=== PATIENT | female | born 1975 ===

== ENCOUNTER 2016-12-01 07:54 | Emergency (ER) | payer OTHER ==
[2016-12-01 07:54] VITALS: BMI 28.4
[2016-12-01 08:06] VITALS: BP 132/99; PULSE 75; RESP 18; TEMP 98.3; O2SAT 99
--- NOTE | 2016-12-01 08:28 | ED PDOC ---
HPI: General Adult Time Seen by Provider: 12/01/16 08:15 Chief Complaint (Nursing): Flu-like Symptoms Chief Complaint (Provider): Cough History Per: Patient History/Exam Limitations: no limitations Onset/Duration Of Symptoms: Days (x2) Current Symptoms Are (Timing): Still Present Severity: Mild Additional Complaint(s): Patient is a 41 year old female, who has a history of Bronchitis, presents to the ED complaining of cough x2 days. Cough is associated with sputum and fever. Denies shortness of breath. PMD: none Past Medical History Reviewed: Historical Data, Nursing Documentation, Vital Signs Vital Signs: Last Vital Signs Temp 98.3 F 12/01/16 08:05 Pulse 75 12/01/16 08:05 Resp 18 12/01/16 08:05 BP 132/99 H 12/01/16 08:05 Pulse Ox 99 12/01/16 08:28 - Medical History PMH: Bronchitis - Surgical History Surgical History: Cholecystectomy - Family History Family History: States: No Known Family Hx Denies: Stroke, [place], CAD, Diabetes, Hypertension - Home Medications Home Medications: Ambulatory Orders Medication Instructions Recorded Multivit/Folic Acid/I 1 tab PO DAILY 03/13/16 [] Docusate [Colace] 100 mg PO Q12H PRN #60 cap 03/17/16 Ferrous Sulfate [Feosol] 325 mg PO DAILY #30 tab 03/17/16 Azithromycin [Zithromax] 250 mg PO DAILY #6 tab 12/01/16 - Allergies Allergies/Adverse Reactions: Allergies Allergy/AdvReac Type Severity Reaction Status Date / Time No Known Allergies Allergy Verified 12/01/16 08:16 Review of Systems ROS Statement: Except As Marked, All Systems Reviewed And Found Negative Constitutional: Positive for: Fever Respiratory: Positive for: Cough, Sputum. Negative for: Shortness of Breath Physical Exam - Reviewed Nursing Documentation Reviewed: Yes Vital Signs Reviewed: Yes - Physical Exam Appears: Positive for: Well, Non-toxic, No Acute Distress Head Exam: Positive for: ATRAUMATIC, NORMAL INSPECTION, NORMOCEPHALIC Skin: Positive for: Normal Color, Warm, DRY Eye Exam: Positive for: Normal appearance, EOMI Cardiovascular/Chest: Positive for: Regular Rate, Rhythm. Negative for: Gallop , Murmur Respiratory: Positive for: Rhonchi (scattered). Negative for: Accessory Muscle Use, Wheezing, Respiratory Distress Gastrointestinal/Abdominal: Positive for: Normal Exam, Soft. Negative for: Tenderness, Mass, Distended, Guarding, Rebound Extremity: Positive for: Normal ROM Neurologic/Psych: Positive for: Alert, Oriented - ECG O2 Sat by Pulse Oximetry: 99 (RA) Pulse Ox Interpretation: Normal Medical Decision Making Medical Decision Making: Time: 8:15 Impression: 41 y/o female w/ productive cough and fever Plan: CXR Influenza A B Stat UPreg Scribe Attestation: Documented by Rene Viveros acting as a scribe for Fahad Toure MD. Scribe Attestation: All medical record entries made by the Scribe were at my direction and personally dictated by me. I have reviewed the chart and agree that the record accurately reflects my personal performance of the history, physical exam, medical decision making, and the department course for this patient. I have also personally directed, reviewed, and agree with the discharge instructions and disposition. Disposition - Clinical Impression Clinical Impression: Bronchitis - Patient ED Disposition Is Patient to be Admitted: No Counseled Patient/Family Regarding: Studies Performed, Diagnosis, Need For Followup, Rx Given - Disposition Referrals: [facility] [Outside] Disposition: Routine/Home Disposition Time: 09:57 Condition: FAIR Prescriptions: Azithromycin [Zithromax] 250 mg PO DAILY #6 tab Instructions: Acute Bronchitis (ED)
--- NOTE | 2016-12-01 13:24 | RAD ---
HISTORY: Cough, fever. COMPARISON: 09/25/2014. TECHNIQUE: Chest PA and lateral FINDINGS: LUNGS: No active pulmonary disease. PLEURA: No significant pleural effusion identified. No pneumothorax apparent. CARDIOVASCULAR: Normal. OSSEOUS STRUCTURES: No significant abnormalities. VISUALIZED UPPER ABDOMEN: Normal. OTHER FINDINGS: None. IMPRESSION: No active disease. No significant interval change compared to the prior examination(s).
== END 2016-12-01 10:35 | disposition home or self-care (01) ==
LOC: H.ER 07:54
DX: J40 Bronchitis, not specified as acute or chronic (principal); R05 Cough; R50.9 Fever, unspecified

== ENCOUNTER 2017-04-15 07:35 | Emergency (ER) | payer OTHER ==
[2017-04-15 07:36] VITALS: BMI 28.4
[2017-04-15 08:09] VITALS: BP 116/72; PULSE 83; RESP 18; TEMP 98; O2SAT 100
--- NOTE | 2017-04-15 08:14 | ED PDOC ---
HPI: Abdomen Time Seen by Provider: 04/15/17 08:02 Chief Complaint (Nursing): Abdominal Pain Chief Complaint (Provider): Abdominal Pain History Per: Patient History/Exam Limitations: no limitations Onset/Duration Of Symptoms: Days Current Symptoms Are (Timing): Still Present Additional Complaint(s): 41 y/o female, , presents to the emergency department with a complaint of an upper abdominal pain associated with clear vaginal liquid since yesterday, . Patient approximately 16 weeks . Denies vaginal bleeding, dysuria, or fever. Past Medical History Reviewed: Historical Data, Nursing Documentation, Vital Signs Vital Signs: Last Vital Signs Temp 98 F 04/15/17 08:05 Pulse 83 04/15/17 08:05 Resp 18 04/15/17 08:05 BP 116/72 04/15/17 08:05 Pulse Ox 100 04/15/17 11:42 - Medical History PMH: Bronchitis - Surgical History Surgical History: Cholecystectomy - Family History Family History: Denies: Stroke, [place], CAD, Diabetes, Hypertension - Social History Current smoker - smoking cessation education provided: No Alcohol: None Drugs: Denies - Home Medications Home Medications: Ambulatory Orders Medication Instructions Recorded Multivit/Folic Acid/I 1 tab PO DAILY 03/13/16 [] Docusate [Colace] 100 mg PO Q12H PRN #60 cap 03/17/16 Ferrous Sulfate [Feosol] 325 mg PO DAILY #30 tab 03/17/16 Azithromycin [Zithromax] 250 mg PO DAILY #6 tab 12/01/16 Miconazole Nitrate [Monistat 7] 44 gm VG DAILY #7 cmb.pf.crm 04/15/17 - Allergies Allergies/Adverse Reactions: Allergies Allergy/AdvReac Type Severity Reaction Status Date / Time No Known Allergies Allergy Verified 12/01/16 08:16 Review of Systems ROS Statement: Except As Marked, All Systems Reviewed And Found Negative Constitutional: Negative for: Fever Gastrointestinal: Positive for: Abdominal Pain (Upper region) Genitourinary Female: Positive for: Vaginal Discharge. Negative for: Dysuria, Vaginal Bleeding Physical Exam - Reviewed Nursing Documentation Reviewed: Yes Vital Signs Reviewed: Yes - Physical Exam Appears: Positive for: Non-toxic, No Acute Distress Head Exam: Positive for: ATRAUMATIC, NORMAL INSPECTION, NORMOCEPHALIC Skin: Positive for: Normal Color, Warm, Dry Neck: Positive for: Normal, Supple Cardiovascular/Chest: Positive for: Regular Rate, Rhythm. Negative for: Murmur Respiratory: Positive for: Normal Breath Sounds. Negative for: Accessory Muscle Use, Wheezing, Respiratory Distress Gastrointestinal/Abdominal: Positive for: Normal Exam, Soft, Other (Gravid). Negative for: Tenderness Back: Positive for: Normal Inspection Extremity: Positive for: Normal ROM. Negative for: Pedal Edema Neurologic/Psych: Positive for: Alert, Oriented (x3) - Laboratory Results Result Diagrams: 04/15/17 08:30 04/15/17 08:30 - ECG O2 Sat by Pulse Oximetry: 100 (RA) Pulse Ox Interpretation: Normal Medical Decision Making Medical Decision Making: Time: 08:13 Initial impression: Abdominal pain Initial plan: --Type and Screen --Beta-HCG, Quantitative --CMP --Urine DIP --CBC w/ diff --OB , Limited US --Reevaluation Time: 03:30 --Beta-HCQ, Quantitative: 38869.00 Time: 11:27 --Obstetrics Ultrasound FINDINGS: UTERUS: Gestational sac: Single live intrauterine fetus in breech presentation. Heart rate: 133 bpm. age (Ultrasound estimated): 18 weeks and 6 days BPD: 4.24 cm corresponding to 18 weeks and 6 days of gestational age. HC: 16.22 cm corresponding to 19 weeks and 0 days of gestational age. AC: 13.44 cm corresponding to 18 weeks and 6 days of gestational age. FL: 2.86 cm corresponding to 18 weeks and 5 days of gestational age. Placenta is posterior. Amniotic fluid is seen around the fetus. Joann-gestational hemorrhage: None. Date of delivery (Ultrasound estimated) : 09/10/2017 CERVIX: Long and closed. No cervical abnormality seen. RIGHT OVARY: Measures cm. No mass lesion. Normal flow. LEFT OVARY: Measures cm. No solid mass. Normal flow. FREE FLUID: None. OTHER FINDINGS: None. IMPRESSION: Single live intrauterine fetus in breech presentation with mean gestational age of 18 weeks and 6 days. Placenta is posterior. The estimated date of delivery by ultrasound is 09/10/2017. The ultrasound dates correspond with the clinical dates. Scribe Attestation: Documented by Zohra Dueñas, acting as a scribe for Fahad Toure MD. Evaluated by Dr. Long Can be discharged Provider Scribe Attestation: All medical record entries made by the Scribe were at my direction and personally dictated by me. I have reviewed the chart and agree that the record accurately reflects my personal performance of the history, physical exam, medical decision making, and the department course for this patient. I have also personally directed, reviewed, and agree with the discharge instructions and disposition. Disposition - Clinical Impression Clinical Impression: Vaginal candidiasis - Patient ED Disposition Is Patient to be Admitted: No Counseled Patient/Family Regarding: Studies Performed, Diagnosis, Need For Followup, Rx Given - Disposition [facility] Disposition: Routine/Home Disposition Time: 13:41 Condition: FAIR Prescriptions: Miconazole Nitrate [Monistat 7] 44 gm VG DAILY #7 [email or web address] Instructions: Vulvovaginal Candidiasis (ED) Forms: [facility] (Romanian)
[2017-04-15 08:45] LABS: BASO # 0.1 K/uL (0.0-0.2); BASO % 1.1 % (0.0-2.0); EOS # 0.4 K/uL (0.0-0.7); HEMATOCRIT 35.6 % (34.0-47.0); LYMPH # 1.7 K/uL (1.0-4.3); LYMPH % 18.8 % (20.0-40.0); MEAN CELL VOLUME 80.7 fl (81.0-99.0); MEAN CORPUSCULAR HEMOGLOBIN 25.8 pg (27.0-31.0); MEAN CORPUSCULAR HGB CONC 31.9 g/dL (33.0-37.0); MEAN PLATELET VOLUME 9.4 fl (7.2-11.7); MONO # 0.9 K/uL (0.0-0.8); MONO % 9.6 % (0.0-10.0); NEUT # 5.9 K/uL (1.8-7.0); NEUT % 66.5 % (50.0-75.0); RED CELL DISTRIBUTION WIDTH 15.6 % (11.5-14.5); WHITE BLOOD COUNT 8.9 K/uL (4.8-10.8)
[2017-04-15 08:59] LABS: ALB/GLOB RATIO 1.2 (1.0-2.1); ALKALINE PHOSPHATASE 74 U/L (38-126); ALT/SGPT 26 U/L (9-52); AST/SGOT 17 U/L (14-36); BILIRUBIN,TOTAL 0.3 mg/dl (0.2-1.3); BLOOD UREA NITROGEN 8 mg/dl (7-17); CALCIUM 8.7 mg/dL (8.4-10.2); CARBON DIOXIDE 22 mmol/L (22-30); CHLORIDE 108 mmol/L (98-107); GFR AFRICAN-AMERICAN > 60; GLUCOSE,RANDOM 85 mg/dL (65-105); SODIUM 138 mmol/l (132-148); TOTAL PROTEIN 6.8 G/DL (6.3-8.2)
--- NOTE | 2017-04-15 11:29 | US ---
PROCEDURE: OB Pelvic Ultrasound HISTORY: leaking clear fluid COMPARISON: None available. FINDINGS: UTERUS: Gestational sac: Single live intrauterine fetus in breech presentation. Heart rate: 133 bpm. age (Ultrasound estimated): 18 weeks and 6 days BPD: 4.24 cm corresponding to 18 weeks and 6 days of gestational age. HC: 16.22 cm corresponding to 19 weeks and 0 days of gestational age. AC: 13.44 cm corresponding to 18 weeks and 6 days of gestational age. FL: 2.86 cm corresponding to 18 weeks and 5 days of gestational age. Placenta is posterior. Amniotic fluid is seen around the fetus. Joann-gestational hemorrhage: None. Date of delivery (Ultrasound estimated) : 09/10/2017 CERVIX: Long and closed. No cervical abnormality seen. RIGHT OVARY: Measures cm. No mass lesion. Normal flow. LEFT OVARY: Measures cm. No solid mass. Normal flow. FREE FLUID: None. OTHER FINDINGS: None. IMPRESSION: Single live intrauterine fetus in breech presentation with mean gestational age of 18 weeks and 6 days. Placenta is posterior. The estimated date of delivery by ultrasound is 09/10/2017. The ultrasound dates correspond with the clinical dates.
--- NOTE | 2017-04-15 15:00 | CP.PCM.CON ---
History of Present Illness - History of Present Illness History of Present Illness: Patient is a 41 yo 4 para 3003 @ 18.5wks with an LMP 12/05/2016 EDC confirmed by us of 09/11who presented to the emergency department today with c/o leakage her vagina. She states she was unsure if she had ruptured membranes or if this was urine. She denies uterine cramps contractions or vaginal bleeding. OB ultrasound done today shows gestational age consistent with her LMP. she states she has called the [facility] an begin her care. She is not taking any vitamins. Past medical history history of cholelithiasis past surgical history. His history of laparoscopic cholecystectomy. Oh OB history: Spontaneous vaginal delivery 3. No known drug allergies Medications none Social history she denies tobacco use alcohol or illicit drug use. Review of Systems - EENT Eyes: absent: Blurred Vision - Cardiovascular Cardiovascular: absent: Chest Pain, Chest Pain at Rest, Chest Pain with Activity , Dyspnea - Gastrointestinal Gastrointestinal: Bloating. absent: Constipation, Diarrhea, Hematemesis, Vomiting - Genitourinary Genitourinary: absent: Difficulty Urinating - Neurological Neurological: absent: Abnormal Gait, Abnormal Movements - Psychiatric Psychiatric: absent: Anxiety - Hematologic/Lymphatic Hematologic: absent: Easy Bleeding Past Patient History - Past Social History Alcohol: None Drugs: Denies - PULMONARY Hx Bronchitis: Yes - PSYCHIATRIC Hx Substance Use: No - SURGICAL HISTORY Hx Cholecystectomy: Yes - ANESTHESIA Hx Anesthesia: Yes Hx Anesthesia Reactions: No Meds Home Medications: Home Medication List Medication Instructions Recorded Confirmed Type Miconazole Nitrate [Monistat 7] 44 gm VG DAILY #7 cmb.pf.crm 04/15/17 Rx Allergies/Adverse Reactions: Allergies Allergy/AdvReac Type Severity Reaction Status Date / Time No Known Allergies Allergy Verified 12/01/16 08:16 Physical Exam - Constitutional Appears: Well, No Acute Distress - Head Exam Head Exam: ATRAUMATIC, NORMOCEPHALIC - Respiratory Exam Respiratory Exam: NORMAL BREATHING PATTERN - Cardiovascular Exam Cardiovascular Exam: REGULAR RHYTHM - GI/Abdominal Exam GI & Abdominal Exam: Soft. absent: Distended, Guarding, Rebound, Tenderness - Exam External exam: NORMAL EXTERNAL EXAM Speculum exam: Vaginal Discharge (yellow curd-like vaginal discharge consistent with candidiasis). absent: Laceration, NORMAL SPECULUM EXAM (no fluid in vault with and without Valsalva and nitrazine negative), Vaginal Bleeding Bimanual exam: NORMAL BIMANUAL EXAM, Uterine Enlargement Results - Vital Signs Recent Vital Signs: Last Vital Signs Temp 98 F 04/15/17 08:05 Pulse 83 04/15/17 08:05 Resp 18 04/15/17 08:05 BP 116/72 04/15/17 08:05 Pulse Ox 100 04/15/17 13:43 - Labs Result Diagrams: 04/15/17 08:30 04/15/17 08:30 Labs: Laboratory Results - last 24 hr 04/15/17 04/15/17 04/15/17 08:30 08:30 08:30 WBC 8.9 RBC 4.42 Hgb 11.4 L Hct 35.6 MCV 80.7 L MCH 25.8 L MCHC 31.9 L RDW 15.6 H Plt Count 231 D MPV 9.4 Neut % (Auto) 66.5 Lymph % (Auto) 18.8 L Wells % (Auto) 9.6 Eos % (Auto) 4.0 Baso % (Auto) 1.1 Neut # 5.9 Lymph # 1.7 Wells # 0.9 H Eos # 0.4 Baso # 0.1 Sodium 138 Potassium 4.0 Chloride 108 H Carbon Dioxide 22 Anion Gap 12 BUN 8 Creatinine 0.4 L Est GFR ( Amer) > 60 Est GFR (Non-Af Amer) > 60 Random Glucose 85 Calcium 8.7 Total Bilirubin 0.3 AST 17 ALT 26 Alkaline Phosphatase 74 Total Protein 6.8 Albumin 3.7 Globulin 3.1 Albumin/Globulin Ratio 1.2 Beta HCG, Quant 05449.00 Blood Type O POSITIVE Antibody Screen Negative BBK History Checked Patient has bt Assessment & Plan - Assessment and Plan (Free Text) Assessment: impression: Advanced maternal age 18 week 5 day pregnancyVaginal candidiasis No evidence of PP PROM plan plan patient is scheduled in clinic for f/u of ED visit patient has been placed on the waiting list to schedule her first OB appointment. Importance of care and increase due to advanced maternal age discussed with patient. patientto take Monistat for 7 days with applicator this was discussed with patient begin vitamins
== END 2017-04-15 14:00 | disposition home or self-care (01) ==
LOC: H.ER 07:35
DX: O23.599 Infection of other part of genital tract in pregnancy, unspecified trimester (principal)

== ENCOUNTER 2017-06-13 00:34 | Emergency (ER) | payer SELFPAY ==
[2017-06-13 01:06] VITALS: BMI 28.8
[2017-06-13 01:35] LABS: RBC URINE 3 /hpf (0-3); URINE BILIRUBIN NEGATIVE (NEGATIVE); URINE BLOOD NEGATIVE (NEGATIVE); URINE COLOR STRAW (YELLOW); URINE GLUCOSE (UA) NEG (Normal); URINE KETONE NEGATIVE (NEGATIVE); URINE LEUKOCYTE ESTERASE NEG Leu/uL (Negative); URINE PROTEIN NEGATIVE (NEGATIVE); URINE UROBILINOGEN 0.2-1.0 mg/dL (0.2-1.0); WBC URINE 1 /hpf (0-5)
--- NOTE | 2017-06-13 02:06 | OBHP ---
Datetime: 06/13/2017 01:30 IP Adm Impression: , intrauterine ; No Active Labor; Intact Membranes IP Admit Plan: Discharge home Admit Comment, IP Provider: 41yo c/o vaginal blood noted after wiping at 8pm. Also again la ter at night. descreibed as brown/red on tissue and feeling wet. Lower abd discomfort for 3d midlin e non-radiating. +FM; no CTX PNC: CFH x 3 visit starting at 20w sono post plac; RH pos PMH: denies PSH: denies NKA PSoH deneis smoking ETOH drugs A: IUP at 27w abd pain/no evid of VB candidal vaginitis PLAN; check UA; FERN neg Pelvic Type - PN: Adequate Extremities - PN: Normal Abdomen - PN: Normal Back - PN: Normal Lungs - PN: Normal Heart - PN: Normal Neurologic - PN: Normal HEENT - PN: Normal General - PN: Normal FHR - Baseline A Provider: 120 Membranes, Provider: Intact Comments, ACOG Physical Exam: ROS: general no weakness; no fatigue HEENT: no GARCIA; no visual dist CV: no CP; no palpitations ResP; no cough/no SOB GI: no N/V/D : no F/U/D MS: no joint pain; no decreased ROM PE: vagina: thick brown discharge; curdy Pool Provider: Negative Ferning Provider: Negative IP Hx Assessment: The History has been Reviewed and is Current Vital Signs Provider: Reviewed; Within Normal Limits IP Chief Complaint: Suspected ruptured membranes; Vaginal bleeding NICHD Variability Prov Fetus A: Moderate 6-25bpm NICHD Accel Fetus A IP Provider: 10X10 FHR Category Provider Fetus A: Category I NICHD Decel Fetus A IP Provider: None Dilatation, Provider: 0 Genitourinary Exam: Normal
--- NOTE | 2017-06-13 02:08 | OBDCSUM ---
Datetime: 06/13/2017 01:55 Discharged to, Provider: Home Follow up at, Provider: YANNICK Disch Instr Activity: Normal activity Disch Instr Diet: Regular Discharge Instructions, Provider: Routine instructions given Discharge Time: 06/13/2017 01:58 Follow up in weeks, Provider: pt to call for next appointment Disch Referrals: None Disch Activity Restrictions: No sexual activity; Nothing in vagina - [place], tampons, douche Discharge Comment, Provider: UA neg Luh vaginits: Terazol 7 cream x 7d Next appt Jun 24 as scheduled Discharge Diagnosis Prov Other: luh vaginitis
[2017-06-13 06:22] VITALS: BP 94/60; PULSE 76; RESP 19; TEMP 98.3; O2SAT 99
== END 2017-06-13 02:00 | disposition home or self-care (01) ==
LOC: H.EROB2 00:34
DX: O26.92 Pregnancy related conditions, unspecified, second trimester (principal); R10.2 Pelvic and perineal pain; Z3A.27 27 weeks gestation of pregnancy

== ENCOUNTER 2018-06-27 20:22 | Emergency (ER) | payer MEDICAID, SELFPAY ==
[2018-06-27 20:23] VITALS: BMI 28.8
[2018-06-27 20:40] VITALS: RESP 18; O2SAT 100
[2018-06-27] MEDS ORDERED: Albuterol-Ipratrop 3 mg / 0.5 (3 ml) UD IH STA (22:35)
--- NOTE | 2018-06-27 22:43 | ED PDOC ---
HPI: CCC, URI, Sore Throat Time Seen by Provider: 06/27/18 22:14 Chief Complaint (Nursing): Cough, Cold, Congestion Chief Complaint (Provider): cough, congestion History Per: Patient History/Exam Limitations: no limitations Onset/Duration Of Symptoms: Days (4) Current Symptoms Are (Timing): Still Present Additional Complaint(s): 42 y/o female presents for evaluation of cough and congestion x 4 days. Patient reports right ear initially painful, but now cannot hear out of it. Denies fever, nausea/vomiting, chest pain, shortness of breath, palpitations, changes in bowel movements, urinary symptoms, recent travel. Patient's daughter sick with similar symptoms. Past Medical History Reviewed: Historical Data, Nursing Documentation, Vital Signs Vital Signs: Last Vital Signs Temp 98.3 F 06/27/18 20:39 Pulse 82 06/27/18 20:39 Resp 18 06/27/18 20:39 BP 133/79 06/27/18 20:39 Pulse Ox 100 06/27/18 20:39 - Medical History PMH: Bronchitis - Surgical History Surgical History: Cholecystectomy - Family History Family History: Denies: Stroke, [place], CAD, Diabetes, Hypertension - Home Medications Home Medications: Ambulatory Orders Medication Instructions Recorded Multivit/Folic Acid/I 1 tab PO DAILY 03/13/16 [] Docusate [Colace] 100 mg PO Q12H PRN #60 cap 03/17/16 Ferrous Sulfate [Feosol] 325 mg PO DAILY #30 tab 03/17/16 Azithromycin [Zithromax] 250 mg PO DAILY #6 tab 12/01/16 Miconazole Nitrate [Monistat 7] 44 gm VG DAILY #7 cmb.pf.crm 04/15/17 Albuterol HFA [Ventolin HFA 90 1 puff IH Q4 PRN #1 inh 06/27/18 mcg/actuation (8 g)] Amoxicillin/Clavulanate [Augmentin 1 tab PO Q12 #13 tab 06/27/18 875 MG-125 MG] Fluticasone Nasal [Flonase] 1 actuation NS BID #1 bottle 06/27/18 Ofloxacin Otic 0.3% [Floxin 0.3% 3 drop OT DAILY #1 bottle 06/27/18 Otic Soln] - Allergies Allergies/Adverse Reactions: Allergies Allergy/AdvReac Type Severity Reaction Status Date / Time No Known Allergies Allergy Verified 06/27/18 20:39 Review of Systems ROS Statement: Except As Marked, All Systems Reviewed And Found Negative ENT: Positive for: Nose Congestion Respiratory: Positive for: Cough Physical Exam - Reviewed Nursing Documentation Reviewed: Yes Vital Signs Reviewed: Yes - Physical Exam Appears: Positive for: Well, Non-toxic, No Acute Distress Head Exam: Positive for: ATRAUMATIC, NORMAL INSPECTION, NORMOCEPHALIC Skin: Positive for: Normal Color Eye Exam: Positive for: Normal appearance ENT: Positive for: TM Is/Are (Right TM perforation. Left TM clear. EAC's clear bilaterally), Nasal Congestion. Negative for: Pharyngeal Erythema, Tonsillar Exudate, Tonsillar Swelling Cardiovascular/Chest: Positive for: Regular Rate, Rhythm Respiratory: Positive for: Normal Breath Sounds Gastrointestinal/Abdominal: Positive for: Normal Exam Back: Positive for: Normal Inspection Extremity: Positive for: Normal ROM Neurologic/Psych: Positive for: Alert, Oriented (x3) - ECG O2 Sat by Pulse Oximetry: 100 - Radiology X-Ray: Viewed By Tx X-Ray Interpretation: No Acute Disease - Progress ED Course And Treament: -influenza -CXR -duoneb Mother educated on findings, discharged with rx Augmentin (dose given in ED), Ofloxacin otic, Flonase, Albuterol HFA Advised follow up PMD within 2-3 days Fluids, rest. Return precautions given Disposition - Clinical Impression Clinical Impression: Bronchitis, Otitis media with rupture of tympanic membrane - Patient ED Disposition Is Patient to be Admitted: No Counseled Patient/Family Regarding: Studies Performed, Diagnosis, Need For Followup, Rx Given - Disposition Referrals: [facility] [Outside] Disposition: Routine/Home Disposition Time: 23:31 Condition: IMPROVED Prescriptions: Albuterol HFA [Ventolin HFA 90 mcg/actuation (8 g)] 1 puff IH Q4 PRN #1 inh PRN Reason: Wheezing Amoxicillin/Clavulanate [Augmentin 875 MG-125 MG] 1 tab PO Q12 #13 tab Fluticasone Nasal [Flonase] 1 actuation NS BID #1 bottle Ofloxacin Otic 0.3% [Floxin 0.3% Otic Soln] 3 drop OT DAILY #1 bottle Instructions: Acute Bronchitis, Ruptured Eardrum, Ear Infections (Otitis Media)
[2018-06-27] MEDS ORDERED: Albuterol-Ipratrop 3 mg / 0.5 (3 ml) UD ONE (23:06)
[2018-06-27] MEDS ORDERED: Amoxicillin-Clav 875-125 mg Tab PO STA (23:25)
[2018-06-28] MEDS ORDERED: Amoxicillin-Clav 875-125 mg Tab PO ONE (00:15)
[2018-06-28 00:21] VITALS: BP 141/86; PULSE 86; TEMP 97.7
--- NOTE | 2018-06-28 08:56 | RAD ---
Date of service: 06/27/2018 HISTORY: Cough COMPARISON: 12/01/2016 TECHNIQUE: Chest PA and lateral FINDINGS: LINES AND TUBES: None. LUNG AND PLEURA: The lungs are well inflated. There is chronic scarring in the lower lobes, worse on the left. No pleural effusion or pneumothorax. HEART AND MEDIASTINUM: The heart is not enlarged. No aortic atherosclerotic calcification present. The hilar and mediastinal contours are within normal limits. SKELETAL STRUCTURES: The bony structures are within normal limits for the patient's age. VISUALIZED UPPER ABDOMEN: Normal. OTHER FINDINGS: None. IMPRESSION: No active pulmonary disease.
== END 2018-06-28 00:30 | disposition home or self-care (01) ==
LOC: H.ER 20:22
DX: J40 Bronchitis, not specified as acute or chronic (principal); H66.91 Otitis media, unspecified, right ear; H72.91 Unspecified perforation of tympanic membrane, right ear